=== PATIENT | female | born 1960 | race Caucasian/White ===

== ENCOUNTER 2020-11-30 08:52 | Outpatient (REF) | payer OTHER, SELFPAY ==
--- NOTE | ~2020-11-30 | MM_ITS ---
EXAMINATION: MM SCREENING DIGITAL BREAST TOMOSYNTHESIS, BILATERAL CLINICAL INFORMATION: Screening. Asymptomatic. The lifetime risk of breast cancer based on the Tyrer-Cuzick Model is 16%. COMPARISON: Mammography: September 23, 2019 and studies dating back to November 29, 2012 TECHNIQUE: Digital breast tomosynthesis is performed in both the craniocaudal and mediolateral oblique views along with computer-aided detection (CAD). Synthesized 2D images are generated from the tomosynthesis. FINDINGS: There are scattered areas of fibroglandular density (ACR BI-RADS breast composition Category b). There are no significant masses, abnormal calcifications, or other abnormalities. MM/MM tomosynthesis screening BI IMPRESSION: There are no significant changes from prior study. ASSESSMENT: BI-RADS 1: Negative RECOMMENDATION: Routine annual mammography screening. This patient's information was entered into a reminder system with a target due date for their next mammogram.
== END 2020-11-30 08:53 | disposition home or self-care (01) ==
LOC: HO.MAMMO 08:52
PROVIDERS: PCP Internal Medicine; Visit Provider Internal Medicine
DX: Z12.31 Encounter for screening mammogram for malignant neoplasm of breast (principal)
CPT/HCPCS: 77063; 77067

== ENCOUNTER 2021-04-21 09:53 | Outpatient (REF) | payer OTHER, SELFPAY | END 2021-04-21 09:54 | disposition home or self-care (01) | LOC: HO.HMGCLDS 09:53 | PROVIDERS: Visit Provider Internal Medicine | DX: Z20.822 Contact with and (suspected) exposure to COVID-19 (principal) | CPT/HCPCS: C9803; U0003; U0005 ==

== ENCOUNTER 2021-12-15 07:38 | Outpatient (REF) | payer OTHER, SELFPAY ==
--- NOTE | ~2021-12-15 | MM_ITS ---
EXAMINATION: MM SCREENING DIGITAL BREAST TOMOSYNTHESIS, BILATERAL CLINICAL INFORMATION: Screening. Asymptomatic. The lifetime risk of breast cancer based on the Tyrer-Cuzick Model is 14%. COMPARISON: Mammography: 11/30/2020, 09/23/2019, 09/17/2018 TECHNIQUE: Digital breast tomosynthesis is performed in both the craniocaudal and mediolateral oblique views along with computer-aided detection (CAD). Synthesized 2D images are generated from the tomosynthesis. FINDINGS: There are scattered areas of fibroglandular density (ACR BI-RADS breast composition Category b). There is a fibronodular parenchymal pattern similar to prior studies. No developing density, architectural abnormality, or abnormal calcifications. The axilla and skin contours are unremarkable. No significant changes. MM/MM tomosynthesis screening BI IMPRESSION: No mammographic evidence of malignancy. ASSESSMENT: BI-RADS 2: Benign RECOMMENDATION: Routine annual mammography screening. This patient's information was entered into a reminder system with a target due date for their next mammogram.
== END 2021-12-15 07:39 | disposition home or self-care (01) ==
LOC: HO.MAMMO 07:38
PROVIDERS: PCP Internal Medicine; Visit Provider Internal Medicine
DX: Z12.31 Encounter for screening mammogram for malignant neoplasm of breast (principal)
CPT/HCPCS: 77063; 77067

== ENCOUNTER 2023-02-01 15:34 | Outpatient (REF) | payer OTHER, SELFPAY | END 2023-02-01 15:35 | disposition home or self-care (01) | LOC: HO.MAMMO 15:34 | PROVIDERS: PCP Internal Medicine; Visit Provider Internal Medicine | DX: Z12.31 Encounter for screening mammogram for malignant neoplasm of breast (principal) | CPT/HCPCS: 77063; 77067 ==

== ENCOUNTER → 2023-02-01 15:45 | Outpatient (BNV) | payer OTHER, SELFPAY | PROVIDERS: PCP Internal Medicine; Visit Provider Radiology Diagnostic Radiology | DX: Z12.31 Encounter for screening mammogram for malignant neoplasm of breast (principal) | CPT/HCPCS: 77063; 77067 ==

== ENCOUNTER 2024-02-21 15:00 | Outpatient (REF) | payer OTHER, SELFPAY ==
--- NOTE | ~2024-02-21 | MM_ITS ---
EXAMINATION: MM SCREENING DIGITAL BREAST TOMOSYNTHESIS, BILATERAL CLINICAL INFORMATION: Screening. Asymptomatic. COMPARISON: Mammography: Comparison is made with available priors TECHNIQUE: Digital breast mammography with tomosynthesis is performed in both the craniocaudal and mediolateral oblique views along with computer-aided detection (CAD). FINDINGS: There are scattered areas of fibroglandular density (ACR BI-RADS breast composition Category b). There are no significant masses, abnormal calcifications, or other abnormalities. MM/MM tomosynthesis screening BI IMPRESSION: No mammographic evidence of malignancy. ASSESSMENT: BI-RADS BI-RADS 1 - Negative RECOMMENDATION: Routine annual mammography screening. 1 year F/U This examination should not preclude the clinical evaluation of a suspicious palpable abnormality. This patient's information was entered into a reminder system with a target due date for their next mammogram. Electronically signed by: Marissa Petersen DO 03/03/2024 04:16 PM GENO
== END 2024-02-21 15:01 | disposition home or self-care (01) ==
LOC: HO.MAMMO 15:00
PROVIDERS: PCP Internal Medicine; Visit Provider Internal Medicine
DX: Z12.31 Encounter for screening mammogram for malignant neoplasm of breast (principal)
CPT/HCPCS: 77063; 77067

== ENCOUNTER → 2024-02-21 15:15 | Outpatient (BNV) | payer OTHER, SELFPAY | PROVIDERS: PCP Internal Medicine; Visit Provider Internal Medicine | DX: Z12.31 Encounter for screening mammogram for malignant neoplasm of breast (principal) | CPT/HCPCS: 77063; 77067 ==

== ENCOUNTER 2025-02-24 15:31 | Outpatient (REF) | payer OTHER, SELFPAY ==
--- OUTSIDE RECORDS SUMMARY | 2024-02-18 11:15 | XMS_ITS ---
Author Organization [facility] [address] Address [address] [place] [address] Care Team Providers Care Bowling Alley Manager Name Role Phone GRACEVanessa ANASTASIIA Unavailable [phone] Medications Medication SIG (Take, Route, Fr equency, Duration) Notes Start Date End Date Status Zepbound 2.5 MG/0.5ML 2.5 mg weekly Subc utaneous Weekly; Duration: 30 days Active Wegovy 0.25 MG/0.5ML 0.25mg Subcutaneous weekly; Duration: 30 days Active Encounters Encounter Location Date Provider Diagnosis [facility] [address] [address] 02/18/2024 ANASTASIIA BURGESS Other obesity due to excess calories E66.09 ; Body mass index [BMI] 36.0-36.9, adult Z68.36 ; Dietary counseling and surveillance Z71.3 and Depression with anxiety F41.8 Assessments Encounter Date Diagnosis (ICD Code) Assessment Notes Treatment Notes Treatment Clinical Notes Section Notes 02/18/2024 Other obesity due to excess calories (ICD-10 - E66.09) #Weight Management 02/18/2024 Start dual incretin Discussed probiotics and B12 complex vitamins Total time spent today was 30 minutes of which greater than 50% was spent on coordinating and counseling Patient has been found to be obese with a BMI of (36). Patient has class (2) obesity. We are a board certified obesity and weight management practice Patient has trialed behavioral modification, dietary restrictions and exercise for a minimum of 6 months The most recent [place] [employer] of clinical endocrinologists and [place] [employer] of endocrinology guidelines recommend patients who have overweight BMI or obesity BMI, who also have metabolic syndrome, prediabetes, HLD, and other comorbidities or at risk of developing type 2 diabetes should aim for a weight loss goal of at least 10% of the baseline body weight Patient counseled regarding effects of GLP/GIP-1 agonists, and other FDA approved wgt loss meds with regards to a multifactorial approach of weight loss as mentioned above and not solely appetite suppression. Of note, some information is being carried forward from prior records for informational purposes only and is being cited so that efficiency, safety and quality of the patient's care is not compromised This note was prepared using voice recognition software and direct typing Please excuse inadvertent spreading machine operator or typing errors, or uncorrected word substitutions Although every attempt has been made by the provider to proofread this document, occasional misspellings and typographical errors may still be present Due to the previous pandemic, and the use of personal protective equipment (PPE) This may decrease voice recognition accuracy Inadvertent spreading machine operator errors may occur 02/18/2024 Body mass index [BMI] 36.0-36.9, adult (ICD-10 - Z68.36) #Weight Management 02/18/2024 Start dual incretin Discussed probiotics and B12 complex vitamins Total time spent today was 30 minutes of which greater than 50% was spent on coordinating and counseling Patient has been found to be obese with a BMI of (36). Patient has class (2) obesity. We are a board certified obesity and weight management practice Patient has trialed behavioral modification, dietary restrictions and exercise for a minimum of 6 months The most recent [place] Association of clinical endocrinologists and [place] [employer] endocrinology guidelines recommend patients who have overweight BMI or obesity BMI, who also have metabolic syndrome, prediabetes, HLD, and other comorbidities or at risk of developing type 2 diabetes should aim for a weight loss goal of at least 10% of the baseline body weight Patient counseled regarding effects of GLP/GIP-1 agonists, and other FDA approved wgt loss meds with regards to a multifactorial approach of weight loss as mentioned above and not solely appetite suppression. Of note, some information is being carried forward from prior records for informational purposes only and is being cited so that efficiency, safety and quality of the patient's care is not compromised This note was prepared using voice recognition software and direct typing Please excuse inadvertent spreading machine operator or typing errors, or uncorrected word substitutions Although every attempt has been made by the provider to proofread this document, occasional misspellings and typographical errors may still be present Due to the previous pandemic, and the use of personal protective equipment (PPE) This may decrease voice recognition accuracy Inadvertent spreading machine operator errors may occur 02/18/2024 Dietary counseling and surveillance (ICD-10 - Z71.3) #Weight Management 02/18/2024 Start dual incretin Discussed probiotics and B12 complex vitamins Total time spent today was 30 minutes of which greater than 50% was spent on coordinating and counseling Patient has been found to be obese with a BMI of (36). Patient has class (2) obesity. We are a board certified obesity and weight management practice Patient has trialed behavioral modification, dietary restrictions and exercise for a minimum of 6 months The most recent [place] Association of clinical endocrinologists and [place] [employer] endocrinology guidelines recommend patients who have overweight BMI or obesity BMI, who also have metabolic syndrome, prediabetes, HLD, and other comorbidities or at risk of developing type 2 diabetes should aim for a weight loss goal of at least 10% of the baseline body weight Patient counseled regarding effects of GLP/GIP-1 agonists, and other FDA approved wgt loss meds with regards to a multifactorial approach of weight loss as mentioned above and not solely appetite suppression. Of note, some information is being carried forward from prior records for informational purposes only and is being cited so that efficiency, safety and quality of the patient's care is not compromised This note was prepared using voice recognition software and direct typing Please excuse inadvertent spreading machine operator or typing errors, or uncorrected word substitutions Although every attempt has been made by the provider to proofread this document, occasional misspellings and typographical errors may still be present Due to the previous pandemic, and the use of personal protective equipment (PPE) This may decrease voice recognition accuracy Inadvertent spreading machine operator errors may occur 02/18/2024 Depression with anxiety (ICD-10 - F41.8) #Weight Management 02/18/2024 Start dual incretin Discussed probiotics and B12 complex vitamins Total time spent today was 30 minutes of which greater than 50% was spent on coordinating and counseling Patient has been found to be obese with a BMI of (36). Patient has class (2) obesity. We are a board certified obesity and weight management practice Patient has trialed behavioral modification, dietary restrictions and exercise for a minimum of 6 months The most recent [place] Association of clinical endocrinologists and [place] [employer] of endocrinology guidelines recommend patients who have overweight BMI or obesity BMI, who also have metabolic syndrome, prediabetes, HLD, and other comorbidities or at risk of developing type 2 diabetes should aim for a weight loss goal of at least 10% of the baseline body weight Patient counseled regarding effects of GLP/GIP-1 agonists, and other FDA approved wgt loss meds with regards to a multifactorial approach of weight loss as mentioned above and not solely appetite suppression. Of note, some information is being carried forward from prior records for informational purposes only and is being cited so that efficiency, safety and quality of the patient's care is not compromised This note was prepared using voice recognition software and direct typing Please excuse inadvertent spreading machine operator or typing errors, or uncorrected word substitutions Although every attempt has been made by the provider to proofread this document, occasional misspellings and typographical errors may still be present Due to the previous pandemic, and the use of personal protective equipment (PPE) This may decrease voice recognition accuracy Inadvertent spreading machine operator errors may occur Plan Of Treatment Medication Medication Name Sig Start Date Stop Date Notes Zepbound 2.5 MG/0.5ML 2.5 mg weekly Subc utaneous Weekly; Duration: 30 days Wegovy 0.25 MG/0.5ML 0.25mg Subcutaneous weekly; Duration: 30 days Progress Notes * PHILPRATIK ValdezHYDOB:1960 (64 yo F)Acc No.[id number]:02/18/2024 Patient: FRANKIE WARD Provider: Haleigh BURGESS NP :1960 A ge:63 Y S ex:Female Date:02/18/2024 Address:[address] [place] [address] Subjective: * Chief Complaints: * * HPI: C onstitutional: Patient is here today for a weight management f/uvisit Patient seen and examined. Full past medical history, social history, family history, allergies and current medications were reviewed and updated. Body composition analysis reviewed today #Weight Management 02/18/2024 History of major depression, chronic hepatitis C, status post left total knee arthroplasty revision, July 2023 02/18/2024, Weight , BMI 12/10/2023: Weight 200 lbs, BMI: 36 Patient referred to us from her friend at work who comes here for weight management. 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 Highest weight: 219 lbs Lowest weight: 99 lbs Goal weight: 120-130 lbs RAKAN screening/STOP-BANG/Odem, Denies. States that she does snore Metabolic workup: 08/2023 at [facility] Comprehensive labs August 2023 CBC is stable Renal function electrolytes and LFTs are stable Hemoglobin A1c of 5.4 TSH 2.9, T4, 0.90 Total cholesterol 190, HDL 76, triglycerides 94, LDL 95 Has not had an echocardiogram recently. Past Medical History: Depression Mediations: Buproprion Sertraline Aspirin PRN Flonase PRN Allergies: Amoxicillin: Vomiting Family History: Son: Tongue cancer Mother: Breast Cancer Father: Emphysema Sisters: Liver cirrhosis Surgical History: L Knee Replacement: 07/2016 R Knee Replacement: 07/2016 Left knee reconstruction: 07/2023 Cardiac ablation Social History: ETOH: None Former smoker: Quit in 1989; Smoked 1 1/2 packs per day for approximately 20 years Denies other drug use. Diet: States that she eats 1 1/2 meals a day. Admits to occasional snacking. Drinks about 24 ounces of water a day. Also drinks coffee and milk. Exercise: Denies exercise or tracking steps. * ROS: A ll Other Systems: Review of Systems (ROS) A ll others negative except those mentioned in HPI. * Medical History: Objective: * Vitals: * Examination: G eneral Examination: GENERAL APPEARANCE: i n no acute distress, well developed, well nourished. H EAD: n ormocephalic, atraumatic. E YES: p upils equal, round, reactive to light and accommodation. E ARS: n ormal. O RAL CAVITY: m ucosa moist. T HROAT: c lear. N PILAR/THYROID: n pilar supple, full range of motion, no cervical lymphadenopathy. S KIN: n o suspicious lesions, warm and dry. H EART: n o murmurs, regular rate and rhythm, S1, S2 normal. L UNGS: c lear to auscultation bilaterally. A BDOMEN: n ormal, bowel sounds present, soft, nontender, nondistended. E XTREMITIES: n o clubbing, cyanosis, or edema. N EUROLOGIC: n onfocal, motor strength normal upper and lower extremities, sensory exam intact. Assessment: * Assessment: 1. O ther obesity due to excess calories - E66.09 (Primary) 2 . B hanny mass index [BMI] 36.0-36.9, adult - Z68.36 3 . D ietary counseling and surveillance - Z71.3 4 . D epression with anxiety - F41.8 #Weight Management 02/18/2024 Start dual incretin Discussed probiotics and B12 complex vitamins Total time spent today was 30 minutes of which greater than 50% was spent on coordinating and counseling Patient has been found to be obese with a BMI of (36). Patient has class (2) obesity. We are a board certified obesity and weight management practice Patient has trialed behavioral modification, dietary restrictions and exercise for a minimum of 6 months The most recent [place] Association of clinical endocrinologists and [place] College of endocrinology guidelines recommend patients who have overweight BMI or obesity BMI, who also have metabolic syndrome, prediabetes, HLD, and other comorbidities or at risk of developing type 2 diabetes should aim for a weight loss goal of at least 10% of the baseline body weight Patient counseled regarding effects of GLP/GIP-1 agonists, and other FDA approved wgt loss meds with regards to a multifactorial approach of weight loss as mentioned above and not solely appetite suppression. Of note, some information is being carried forward from prior records for informational purposes only and is being cited so that efficiency, safety and quality of the patient's care is not compromised This note was prepared using voice recognition software and direct typing Please excuse inadvertent spreading machine operator or typing errors, or uncorrected word substitutions Although every attempt has been made by the provider to proofread this document, occasional misspellings and typographical errors may still be present Due to the previous pandemic, and the use of personal protective equipment (PPE) This may decrease voice recognition accuracy Inadvertent spreading machine operator errors may occur. Plan: * Treatment: * Images: Billing Information: * Visit Code: * Procedure Codes: * Electronic signature of DANIEL BURGESS on 02/24/2025 at 07:51 PM EDT Sign off status: Pending * Provider: Haleigh BURGESS NP Date: Generated for Lenin farley/Linda/Reji on: 07:51 PM EDT History and Physical Notes * HPI (History of Present Illness) Category Sub-Category Detail Notes Category Not es Constitutional Patient is here today for a weight management f/uvisit Patient seen and examined. Full past medical history, social history, family history, allergies and current medications were reviewed and updated. Body composition analysis reviewed today #Weight Management 02/18/2024 History of major depression, chronic hepatitis C, status post left total knee arthroplasty revision, July 2023 02/18/2024, Weight , BMI 12/10/2023: Weight 200 lbs, BMI: 36 Patient referred to us from her friend at work who comes here for weight management. 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 Highest weight: 219 lbs Lowest weight: 99 lbs Goal weight: 120-130 lbs RAKAN screening/STOP-BANG/Odem, Denies. States that she does snore Metabolic workup: 08/2023 at [facility] Comprehensive labs August 2023 CBC is stable Renal function electrolytes and LFTs are stable Hemoglobin A1c of 5.4 TSH 2.9, T4, 0.90 Total cholesterol 190, HDL 76, triglycerides 94, LDL 95 Has not had an echocardiogram recently. Past Medical History: Depression Mediations: Buproprion Sertraline Aspirin PRN Flonase PRN Allergies: Amoxicillin: Vomiting Family History: Son: Tongue cancer Mother: Breast Cancer Father: Emphysema Sisters: Liver cirrhosis Surgical History: L Knee Replacement: 07/2016 R Knee Replacement: 07/2016 Left knee reconstruction: 07/2023 Cardiac ablation Social History: ETOH: None Former smoker: Quit in 1989; Smoked 1 1/2 packs per day for approximately 20 years Denies other drug use. Diet: States that she eats 1 1/2 meals a day. Admits to occasional snacking. Drinks about 24 ounces of water a day. Also drinks coffee and milk. Exercise: Denies exercise or tracking steps. Examination Category Sub-Category Detail Notes Category Not es General Examination GENERAL APPEARANCE: in no ac jovan distress, well developed, well nourished HEAD: normocephalic, atrau matic EYES: pupils equal, round, reactive to light and accommodation EARS: normal THROAT: clear NECK/THYROID: neck supple, full ra nge of motion, no cervical lymphadenopathy HEART: no murmurs, regular rate and rhythm, S1, S2 normal LUNGS: clear to auscultatio n bilaterally ABDOMEN: normal, bowel sounds present, soft, nontender, nondistended NEUROLOGIC: nonfocal, motor stre ngth normal upper and lower extremities, sensory exam intact SKIN: no suspicious lesion s, warm and dry EXTREMITIES: no clubbing, cyanosi s, or edema ORAL CAVITY: mucosa moist
--- OUTSIDE RECORDS SUMMARY | 2025-02-24 19:52 | XMS_ITS | Patient Health Record ---
Author Organization [facility] Address [address] [place] [address] Care Team Providers Care Organ Tuner Electronic Name Role Phone ANASTASIIA BURGESS Unavailable [phone] Allergies Allergen (clinical drug ingredient) Drug/Non Drug Allergy documented on EMR Reaction Allergy Type Onset Date Status amoxicillin Amoxicillin vomiting Drug Allergy Act davey Reason For Referral No Information Medications Medication SIG (Take, Route, Fr equency, Duration) Notes Start Date End Date Status Wegovy 0.25 MG/0.5ML INJECT 0.25 MG SUBC UTANEOUSLY WEEKLY; Duration: 28 Active Sertraline HCl 100 MG 1 tablet Orally Once a day Active buPROPion HCl 75 MG 2 tablets Orally Twice a day Active Zepbound 2.5 MG/0.5ML 2.5 mg weekly Subc utaneous Weekly; Duration: 30 days Active Wegovy 0.25 MG/0.5ML 0.25mg Subcutaneous weekly; Duration: 30 days Active Problems Problem Type SNOMED Code ICD Code Onset Dates Problem Status W/U Status Risk Notes Problem Obesity due to excess calories (016144036) Other obesity due to excess calories (E66.09) Active confirmed Problem Body mass index 35.00 to 39.99 (93810161361984 5) Body mass index [BMI] 36.0-36.9, adult (Z68.36) Active confirmed Problem Mixed anxiety and depressive disorder (793466387) Depression with anxiety (F41.8) Active confirmed Plan Of Treatment No Information Insurance Providers Payer Name Payer Address Payer Phone Subscriber Number Group Number Insured Name Patient Relationship to Insured Coverage Start Date Coverage End Date [facility] [address] [place] [address] [id number] FRANKIE ROWE Self - patient is the insured 1 Medical (General) History Medical History History ICD Code hemorrhoids Arthritis headaches Hep C (not active) Surgical History Surgery Date(Month/Year) Double knee replacement 2016 L knee reconstruction 07/2023
--- OUTSIDE RECORDS SUMMARY | 2025-02-24 19:52 | XMS_ITS | Patient Health Record ---
[facility] Address [address] [place] [address] Care Team Providers Care Alligator Trapper Name Role Phone Neymar Patten MD Primary Care Provider Lashawn Mary Unavailable [phone] Allergies Allergen (clinical drug ingredient) Drug/Non Drug Allergy documented on EMR Reaction Allergy Type Onset Date Status Adhesive rash Allergy Active amoxicillin Amoxicillin Unknown Drug Allergy Act davey Reason For Referral No Information Medications Medication SIG (Take, Route, Frequency, Duration) Notes Start Date End Date Status Tylenol Active buPROPion HCl 150 MG 1 tablet Orally Once a day Active Sertraline HCl 100 MG 2 Tablets Orally O nce a day Active ibuprofen Not-Taking Immunizations Vaccine Route Administration Date Status Comme nts COVID-19 Pfizer BioNTech Vaccine Unknown 02/28/2021 Administered First Dose: 07/16/2020 Second Dose: 08/16/2020 Social History Tobacco Use: Social History Observation Description Date Details (start date - stop date) Former Smoker NA - NA Tobacco Use/Smoking Question Answer Notes Are you a: former smoker Additional Findings: Tobacco Non-User Current no n-smoker Alcohol Screen Question Answer Notes Did you have a drink containing alcohol in the p ast year? No Points 0 Interpretation Negative Tobacco use other than smoking: Question Answer Notes Are you an other tobacco user? No Problems Problem Type SNOMED Code ICD Code Onset Dates Problem Status W/U Status Risk Notes Problem Localized, primary osteoarthritis of the ankle and/or foot (453537022) Osteoarthritis of right ankle and foot (M19.071) Active confirmed Plan Of Treatment Pending Test Test Name Order Date X ray : Foot, right 3V 10/01/2018 X ray : Foot, right 3V 08/03/2020 X ray : Foot, right 3V 05/03/2021 [id number], [id number]/[id number], JOINT/BURSA 0 05/03/2021 Insurance Providers Payer Name Payer Address Payer Phone Subscriber Number Group Number Insured Name Patient Relationship to Insured Coverage Start Date Coverage End Date [facility] [address] [facility] [place] [address] [id number] Latasha Marino Self - patient is the insured Medical (General) History Medical History History ICD Code Anemia Arthritis Back,Hip,and Knee pain Depression Headaches/Migraines Hepatitis Chicken pox Joint implants/screws Surgical History Surgery Date(Month/Year) knee replacement 06/2016, 07/2016
== END 2025-02-24 15:32 | disposition home or self-care (01) ==
LOC: HO.MAMMO 15:31
PROVIDERS: PCP Internal Medicine; Visit Provider Internal Medicine
DX: Z12.31 Encounter for screening mammogram for malignant neoplasm of breast (principal)
CPT/HCPCS: 77063; 77067

== ENCOUNTER → 2025-02-24 15:45 | Outpatient (BNV) | payer OTHER, SELFPAY | PROVIDERS: PCP Internal Medicine; Visit Provider Internal Medicine | DX: Z12.31 Encounter for screening mammogram for malignant neoplasm of breast (principal) | CPT/HCPCS: 77063; 77067 ==